=== PATIENT | female | born 1990 | race Caucasian/White ===

== ENCOUNTER 2016-08-19 09:21 | Emergency (ER) ==
[2016-08-19 09:26] VITALS: BP 141/79
[2016-08-19] MEDS ORDERED: BENADRYL IM ONE (10:08)
--- NOTE | 2016-08-19 10:12 | PROVIDER DOCUMENTATION ---
HPI-Rash/Wound/ReCheck - General Chief Complaint: Rash Stated Complaint: 37 WEEKS PREG/RASH Time Seen by Provider: 08/19/16 10:01 Source: patient Allergies/Adverse Reactions: Allergies Allergy/AdvReac Type Severity Reaction Status Date / Time chocolate flavor Allergy Intermediate rash and Verified 08/13/16 20:11 swelling Latex, Natural Rubber Allergy Intermediate RASH Verified 08/13/16 20:11 wild lam Allergy Unknown Verified 08/13/16 20:11 ants Allergy Intermediate SWELLING Uncoded 01/07/16 14:36 Home Medications: Home Medication List Medication Instructions Recorded Confirmed Last Taken Type Pnv with Ca,No.71/Iron/FA 1 each PO DAILY 12/05/14 08/16/16 08/13/16 History [ Vitamin Tablet] - History of Present Illness-Dermatology Nature of Presenting Problem: This pt, who is currently 37 weeks , presents today c complaints of an itchy rash on her arms and abdomen X 2 days. She denies any new exposures. No n/ v/d, fever, chills. No other issues or complaints. Location: reports: other (see hpi) Quality: reports: itchy Severity: reports: moderate Onset/Duration: reports: 2 days ago Timing: reports: still present Context/Associated Symptoms: reports: rash Similar Symptoms Previously?: No Recently seen or treated by another doctor?: No Review of Systems - Adult - REVIEW OF SYSTEMS - ADULT Constitutional: reports: no symptoms reported. denies: chills, fever Eyes: reports: no symptoms reported. denies: discharge, dry eyes Ears, Nose, Mouth & Throat: reports: no symptoms reported. denies: ear discharge, ear pain Cardiovascular: reports: no symptoms reported. denies: chest pain, edema Respiratory: reports: no symptoms reported. denies: chronic cough, cough Gastrointestinal: reports: no symptoms reported. denies: abdominal pain, hematemesis Genitourinary: reports: no symptoms reported. denies: dysuria, discharge Musculoskeletal: reports: no symptoms reported. denies: bone pain, back pain Integumentary: reports: itching, rash. denies: hives, hair loss Neurological: reports: no symptoms reported. denies: ataxia, dizziness/vertigo Psychiatric: reports: no symptoms reported. denies: anxiety, anti-depressant use Endocrine: reports: no symptoms reported Hematologic/Lymphatic: reports: no symptoms reported Allergic/Immunologic: reports: no symptoms reported All Other Systems: Reviewed and Negative Past History - Adult - PAST MEDICAL HISTORY-ADULT Review of Records: reports: Old Records Reviewed, Nursing Assessment Review, Medications Reviewed, Social history reviewed & non-contributory. Major Childhood Illnesses: reports: denies history Cardiovascular: reports: denies history Respiratory: reports: asthma Gastrointestinal: reports: denies history Obstetrical/Gynecological: reports: denies history Genitourinary: reports: denies history Musculoskeletal: reports: denies history Neurological: reports: denies history Endocrine/Immune: reports: denies history Other Conditions: reports: denies history - PRIOR SURGERIES/PROCEDURES Surgical/Procedure History: reports: none - PRIOR HOSPITALIZATIONS Prior Hospitalizations: reports: none - IMMUNIZATION STATUS Childhood Immunizations: See Nurse Assessment Flu Vaccine: See Nurse Assessment - FAMILY HISTORY Family History: reviewed, not pertinent Physical Exam-General - PHYSICAL EXAM-ADULT Initial Vital Signs Reviewed: Yes - CONSTITUTIONAL General Appearance: appears well, alert, no apparent distress - EYES Eyes: PERRL/EOMI, pink conjunctivae - HEAD, EARS, NOSE, MOUTH & THROAT HENMT: normocephalic/atraumatic, moist mucous membranes, normal ENT inspection - NECK Neck: non-tender, full range of motion, supple, normal inspection - RESPIRATORY Respiratory: chest non-tender, lungs clear, normal breath sounds, no pleuratic chest pain, no respiratory distress, no accessory muscle use - CARDIOVASCULAR Cardiovascular: normal peripheral pulses, regular rate, rhythm, no edema, no gallop, no JVD, no murmur - GASTROINTESTINAL (ABDOMEN) Abdominal Exam: normal bowel sounds, non tender, soft - MUSCULOSKELETAL Back Exam: normal inspection Extremity: normal range of motion, non-tender, normal gait - SKIN Integumentary: normal turgor, warm/dry, rash - NEUROLOGIC Neurologic: grossly normal, no motor/sensory deficits Progress - PLAN OF CARE/RESULTS Progress/Plan/Lab Results: Orders Category Date Time Status Heart Tones NOW Care 08/19/16 10:08 Active Diphenhydramine [Benadryl] Med 08/19/16 10:08 Discontinued 50 mg IM NOW ONE Vital Signs Temp Pulse Resp BP Pulse Ox 08/19/16 09:23 97.8 F 101 H 18 141/79 100 chocolate flavor Allergy (Intermediate, Verified 08/13/16 20:11) rash and swelling Latex, Natural Rubber Allergy (Intermediate, Verified 08/13/16 20:11) RASH migraines wild lam Allergy (Verified 08/13/16 20:11) Unknown ants Allergy (Intermediate, Uncoded 01/07/16 14:36) SWELLING Pnv with Ca,No.71/Iron/FA [ Vitamin Tablet] 1 each PO DAILY 12/05/14 Departure - Departure Time of Disposition Order: 10:11 DIAGNOSIS: PUPP (pruritic urticarial papules and plaques of ) Disposition: HOME 01 Certified Medical Emergency: Urgent Condition: Good Additional Instructions: Take benadryl for itching relief. Follow up with your [employer]. ED Follow Up Instructions: You have been treated by a care provider in the Emergency Department. These instructions are being provided to you so you can have an understanding of how to care for yourself upon discharge. Upon discharge from the Emergency Department, you are responsible for making arrangements for follow-up care by a physician of your choice. Take all prescribed medications as directed. Return to the Emergency Department immediately for any new or worsening symptoms. You may call the Physician Referral phone number at [phone] to obtain a list of Physicians who are taking new patients. Referrals: Rubén Lopes MD [Primary Care Provider] - Attestation - Physician/ [place] Attestation Patient care was provided by Advanced Practice Provider:: Yes Advanced Practice Provider:: Brayan Fulton Advanced Practice Provider documentation review:: The Mid-level provider documentation, treatment plan and medical decision making was reviewed by the physician who agrees with all treatment and medical decision making by the MLP.
== END 2016-08-19 10:24 | disposition home or self-care (01) ==
LOC: P.ED 09:21
DX: O26.86 Pruritic urticarial papules and plaques of pregnancy (PUPPP) (principal); Z3A.37 37 weeks gestation of pregnancy; R21 Rash and other nonspecific skin eruption
CPT/HCPCS: 96372; J1200

== ENCOUNTER 2016-09-01 08:26 | Inpatient (IN) ==
[2016-09-01] MEDS ORDERED: LR 2,000 ML ONE (08:43)
[2016-09-01 08:46] LABS: URINE SOURCE VOIDED
[2016-09-01] MEDS ORDERED: REGLAN PO ONE (08:48)
[2016-09-01] MEDS ORDERED: TYLENOL PO PRN (08:48)
[2016-09-01] MEDS ORDERED: PEPCID PO PRN (08:48)
[2016-09-01] MEDS ORDERED: STADOL IV PRN (08:48)
[2016-09-01] MEDS ORDERED: ZOFRAN IV PRN ×2 (08:48→10:50)
[2016-09-01] MEDS ORDERED: LR 500 ML IV ONE (08:48)
[2016-09-01] MEDS ORDERED: KEFZOL 1 GM/D5W 50 ML IV PRN (08:48)
[2016-09-01] MEDS ORDERED: PEPCID PO ONE (08:48)
[2016-09-01] MEDS ORDERED: PEPCID IV PRN (08:48)
[2016-09-01] MEDS ORDERED: PITOCIN 30 UNITS/LR 500 ML IV SCH (09:00)
[2016-09-01] MEDS ORDERED: LR 1,000 ML IV SCH (09:00)
[2016-09-01] MEDS ORDERED: SODIUM CHLORIDE 0.9% INJ SCH (09:00)
[2016-09-01] MEDS ORDERED: FENTANYL ONE (09:09)
[2016-09-01] MEDS ORDERED: VERSED ONE ×2 (09:09→10:27)
[2016-09-01] MEDS ORDERED: DURAMORPH ONE (09:09)
[2016-09-01 09:10] LABS: BILIRUBIN URINE NEGATIVE (NEGATIVE); BLOOD URINE 4+ (NEGATIVE); GLUCOSE URINE NEGATIVE (NEGATIVE); LEUKOCYTES URINE 2+ (NEGATIVE); NITRITE URINE NEGATIVE (NEGATIVE); PROTEIN URINE NEGATIVE (NEGATIVE); UROBILINOGEN URINE NORMAL
[2016-09-01] MEDS ORDERED: BICITRA ONE (09:11)
[2016-09-01 09:16] LABS: CLARITY CLEAR (CLEAR); COLOR YELLOW
[2016-09-01] MEDS ORDERED: PITOCIN IM PRN (10:27)
[2016-09-01] MEDS ORDERED: AMBIEN PO PRN (10:27)
[2016-09-01] MEDS ORDERED: DEMEROL IM PRN (10:27)
[2016-09-01] MEDS ORDERED: HYDROXYZINE PO PRN (10:27)
[2016-09-01] MEDS ORDERED: PITOCIN 20 UNITS/LR 1,000 ML IV ONE (10:27)
[2016-09-01] MEDS ORDERED: CYTOTEC PO PRN (10:27)
[2016-09-01] MEDS ORDERED: M-M-R II VACCINE SUBQ ONE (10:27)
[2016-09-01] MEDS ORDERED: DULCOLAX PR PRN (10:27)
[2016-09-01] MEDS ORDERED: NORCO-5 PO PRN ×2 (10:27→10:50)
[2016-09-01] MEDS ORDERED: HYDROXYZINE IM PRN (10:27)
[2016-09-01] MEDS ORDERED: DEMEROL PO PRN ×2 (10:27)
[2016-09-01] MEDS ORDERED: PHENERGAN IM PRN (10:27)
[2016-09-01] MEDS ORDERED: BOOSTRIX VACCINE IM ONE (10:27)
[2016-09-01] MEDS ORDERED: DIPRIVAN 1% ONE (10:27)
[2016-09-01] MEDS ORDERED: XYLOCAINE-MPF 2% ONE (10:28)
[2016-09-01] MEDS ORDERED: QUELICIN ONE (10:28)
[2016-09-01] MEDS ORDERED: ZOFRAN ODT PO PRN (10:50)
[2016-09-01] MEDS ORDERED: NARCAN INJ PRN (10:50)
[2016-09-01] MEDS ORDERED: NORCO-10 PO PRN (10:51)
[2016-09-01] MEDS: ZOFRAN IV PRN ×2 (11:41→11:50)
--- NOTE | 2016-09-01 13:39 | OPERATIVE NOTE ---
PROCEDURE DATE: 09/01/2016 SURGEON: Nacho Razo MD ANESTHESIA: Spinal by Dr. Cárdenas. OPERATION PERFORMED: Primary low transverse . PREOPERATIVE DIAGNOSES: 1. Term . 2. Labor. 3. Severe variable decelerations. POSTOPERATIVE DIAGNOSES: 1. Term . 2. Labor. 3. Severe variable decelerations. FINDINGS: At 9:33, a 7 pound 3 ounce male was delivered. The was meconium stained fluid. There was a nuchal cord x1. Apgars were 8 at 1 minute and 8 at 5 minutes. SUMMARY: Patient was taken back to the operating room, where spinal anesthetic was placed quickly by Dr. Cárdenas. She was then placed in supine position with left lateral tilt. The abdomen was prepped and draped in the usual fashion. A King catheter was in the urinary bladder. Once satisfactory conduction anesthesia was demonstrated, a Pfannenstiel incision was made. This incision was taken down to the fascia and the fascia was excised transversely. The underlying rectus muscles were bluntly and sharply dissected free. The rectus muscle was in midline. The peritoneum was entered. Lower uterine segment was identified and bladder flap was created. A low transverse incision was made across the lower uterine segment. This incision was extended laterally using digital pressure. Membranes were ruptured revealing meconium-stained fluid. The infant's vertex was delivered through this incision without difficulty. The nuchal cord was reduced. The shoulders and body delivered without complications. Oropharynx was bulb suctioned. The cord was clamped and cut, the was handed to the nurses further care and evaluation. Cord blood was obtained. Placenta was manually removed. Uterus was delivered onto the abdominal wall and explored. All membrane fragments removed. The myometrium was then reapproximated using a running #1 chromic interlocking suture, followed by several [id number] chromic sutures for complete hemostasis across the suture line. The uterus was placed back in the pelvic cavity. Uterine incision was irrigated with copious amounts of sterile water and again hemostasis was noted. Our first and second sponge, instrument, and needle count reported as correct as the peritoneum was closed using a running chromic suture. A third and final sponge, instrument and needle count reported as correct as the fascia was closed using running Vicryl sutures x2. The adipose tissue was reapproximated using a running Vicryl suture and the skin edges reapproximated using a 3-0 Monocryl suture. Anesthesia estimated the blood loss at 400 mL. There were no complications. The patient went to the recovery room in stable condition.
[2016-09-01] MEDS: TORADOL IV SCH ×2 (15:47→21:34)
[2016-09-01] MEDS: MYLICON PO SCH ×3 (15:52→20:53)
[2016-09-01] MEDS: PITOCIN 10 UNITS/LR 1,000 ML IV SCH (18:09)
[2016-09-01] MEDS: PERICOLACE PO SCH (20:53)
[2016-09-02] MEDS: BENADRYL IV PRN ×2 (01:13→04:41)
[2016-09-02] MEDS: PITOCIN 10 UNITS/LR 1,000 ML IV SCH (02:03)
[2016-09-02] MEDS ORDERED: TORADOL ONE (04:33)
[2016-09-02] MEDS ORDERED: TORADOL IV ONE (04:45)
[2016-09-02 06:11] LABS: HEMATOCRIT 37.2 % (37.0-47.0); MCH 30.5 PG (27-31); MCHC 32.3 g/dL (33-37); MCV 94.7 FL (81-99); MPV 9.4 FL (7.4-10.4); RBC 3.93 XMIL (4.2-5.4)
[2016-09-02] MEDS: PRECARE PO SCH (09:07)
[2016-09-02] MEDS: MYLICON PO SCH ×4 (09:07→22:17)
[2016-09-02] MEDS ORDERED: LR 1,000 ML IV SCH (10:27)
[2016-09-02] MEDS: NORCO-10 PO PRN ×2 (10:43→22:17)
[2016-09-02] MEDS: MOTRIN PO PRN ×2 (10:43→19:25)
[2016-09-02] MEDS: PERCOCET-5 PO PRN ×2 (14:28→18:02)
[2016-09-02] MEDS: MYLICON PO PRN (14:29)
[2016-09-02] MEDS: PERICOLACE PO SCH (22:18)
[2016-09-03] MEDS: NORCO-10 PO PRN ×3 (07:30→17:31)
[2016-09-03] MEDS: MOTRIN PO PRN ×2 (07:31→16:19)
[2016-09-03] MEDS: PRECARE PO SCH (08:54)
[2016-09-03] MEDS: MYLICON PO SCH ×3 (08:54→18:15)
[2016-09-03] MEDS: MYLICON PO PRN (14:20)
--- NOTE | 2016-09-04 07:09 | HISTORY AND PHYSICAL ---
PHYSICIAN: Nacho Razo MD. DIAGNOSIS: Recurrent deep variable decelerations. SUMMARY: Lisa Roberts is a 25-year-old, 2, para 1-0-0-1, who presented to labor and delivery with spontaneous rupture of membranes. When she was placed on the monitor, she was noted to have severe deep variable decelerations down into the 40s. Intrauterine resuscitative methods have failed to resolve this problem. She is therefore being prepared for immediate delivery. PAST MEDICAL HISTORY: Patient has had one previous vaginal delivery. She has no chronic medical or surgical illnesses. Her blood type is O positive. ALLERGIES: To latex. CURRENT MEDICATIONS: vitamins. PHYSICAL EXAMINATION: GENERAL: Shows a well-developed, well-nourished female. VITAL SIGNS: Stable. She is afebrile. CARDIOVASCULAR: Regular rate and rhythm without murmurs, rubs, or gallops. PULMONARY: Clear. BREASTS: No masses. ABDOMEN: Gravid. PELVIC: Cervix is 5 cm dilated. is in the vertex presentation. I cannot feel a prolapsing cord. EXTREMITIES: No clubbing, edema, or cyanosis. IMPRESSION: Severe recurrent deep variable discolorations that have failed to resolve with standard intrauterine resuscitative methods. PLAN: We will proceed with immediate delivery. Risks, benefits, possible complications, and obstetrical indications were discussed.
[2016-09-04] MEDS: MYLICON PO SCH ×2 (08:36→09:12)
[2016-09-04] MEDS: NORCO-10 PO PRN (08:36)
[2016-09-04 09:12] VITALS: BP 128/72
[2016-09-04] MEDS: PRECARE PO SCH (09:13)
--- NOTE | 2016-09-04 09:23 | DISCHARGE SUMMARY ---
ADMISSION DATE: 09/01/2016 DISCHARGE DATE: ADMITTING PHYSICIAN: Nacho Razo MD ADMITTING DIAGNOSES: 1. Term in labor. 2. Recurrent deep variable decelerations. PRINCIPAL DISCHARGE DIAGNOSES: 1. Term in labor. 2. Recurrent deep variable decelerations. PRINCIPAL PROCEDURE: Primary section. SUMMARY: Lisa Roberts is a 25-year-old, 2, para 1-0-0-1, who is at term gestation when she presented with spontaneous rupture of membranes. She was noted to have recurrent deep variable decelerations that failed to respond to significant uterine assisted methods. We therefore proceeded with immediate delivery. She delivered a 7 pound, 3 ounce male infant with Apgars of 8 at 1 minute and 8 at 5 minutes. There were no intraoperative complications. The infant was later transferred to [facility] due to the inability to control blood sugars. Postoperatively, Ms. Roberts has done well. She has remained afebrile and all of her vital signs were stable. Her hemoglobin and hematocrit at discharge was 12/37.2. On the day of discharge, cardiac and pulmonary examinations normal. Bowel and bladder function was normal. Incision was clean and dry. She has had scant vaginal bleeding. Ms. Roberts is being discharged today. I will see back and back in the office in 1 week. Routine discharge instructions, activity limitations, and precautions were discussed. She will continue vitamins and her antiemetics at 800 mg and Stephenson 10 #30.
== END 2016-09-04 08:45 | disposition home or self-care (01) | DRG 766 ==
LOC: P.OPLD 08:26 → P.LD 08:27 → P.OPLD 08:45 → P.LD 08:46
PROVIDERS: ADMIT Obstetrics & Gynecology; ATTEND Obstetrics & Gynecology
PROC: 10D00Z1 Extraction of Products of Conception, Low, Open Approach (ICD-10-PCS; principal; 2016-09-01 09:00)
DX: O76 Abnormality in fetal heart rate and rhythm complicating labor and delivery (principal); O77.0 Labor and delivery complicated by meconium in amniotic fluid; Z37.0 Single live birth; Z3A.39 39 weeks gestation of pregnancy; O69.1XX0 Labor and delivery complicated by cord around neck, with compression, not applicable or unspecified
CPT/HCPCS: 59025; 81003; 85027; 86592; 94761; 94799; J0330; J1200; J1885; J2250; J2274; J2405; J2590; J3010; J7120

== ENCOUNTER 2017-01-31 09:24 | Observation (INO) ==
[2017-01-31] MEDS ORDERED: LR 1,000 ML ONE ×2 (10:11→15:38)
[2017-01-31] MEDS ORDERED: PEPCID ONE (10:11)
[2017-01-31] MEDS ORDERED: KEFZOL 1 GM/D5W 1 GM/50 ML IVPB ONE (10:11)
[2017-01-31] MEDS ORDERED: XYLOCAINE 1% ONE (11:39)
[2017-01-31] MEDS ORDERED: SENSORCAINE 0.5%-EPI 1:200,000 ONE (11:39)
[2017-01-31] MEDS ORDERED: DIPRIVAN 1% ONE (11:50)
[2017-01-31] MEDS ORDERED: QUELICIN (DOSE) ONE (11:52)
[2017-01-31] MEDS ORDERED: XYLOCAINE-MPF 2% ONE (11:52)
[2017-01-31] MEDS ORDERED: OFIRMEV 1000 MG/ISOTONIC SOLN 1,000 MG/100 ML BOTTLE ONE (12:22)
[2017-01-31] MEDS ORDERED: ZOFRAN ONE (12:27)
[2017-01-31] MEDS ORDERED: DECADRON ONE (12:27)
[2017-01-31] MEDS ORDERED: FENTANYL ONE (12:35)
[2017-01-31] MEDS ORDERED: ZEMURON ONE (12:44)
[2017-01-31] MEDS ORDERED: ROBINUL ONE (13:51)
[2017-01-31] MEDS ORDERED: NEOSTIGMINE ONE (13:51)
[2017-01-31] MEDS ORDERED: TRANSDERM-SCOP ONE (14:49)
[2017-01-31] MEDS ORDERED: SYNTHROID PO ONE (15:10)
[2017-01-31] MEDS ORDERED: MORPHINE ONE (15:47)
[2017-01-31 16:24] LABS: AGAP 14; BUN 10 mg/dL (8-22); CALCIUM 8.2 mg/dL (8.8-10.2); CHLORIDE 106 mmol/L (98-107); COSMO 288; POTASSIUM 3.5 mmol/L (3.5-5.1); SODIUM 143 mmol/L (136-145); TCO2 23 mmol/L (25-35)
[2017-01-31] MEDS ORDERED: OSCAL 500 PO SCH (17:00)
[2017-01-31] MEDS: LR 1,000 ML IV SCH (17:19)
[2017-01-31] MEDS: OSCAL 500 PO SCH (17:19)
[2017-01-31 18:24] LABS: AGAP 15; BUN 10 mg/dL (8-22); CALCIUM 8.4 mg/dL (8.8-10.2); CHLORIDE 103 mmol/L (98-107); COSMO 282; MAGNESIUM 1.8 mg/dL (1.5-2.7); POTASSIUM 3.4 mmol/L (3.5-5.1); SODIUM 140 mmol/L (136-145); TCO2 22 mmol/L (25-35)
--- NOTE | 2017-01-31 18:27 | OPERATIVE NOTE ---
PROCEDURE DATE: 01/31/2017 PREOPERATIVE DIAGNOSES: Symptomatic multinodular goiter. POSTOPERATIVE DIAGNOSIS: Symptomatic multinodular goiter. PROCEDURE PERFORMED: Total thyroidectomy. COMPLICATIONS: None. ESTIMATED BLOOD LOSS: 50 mL. SPECIMENS: Total thyroid sent as left lobe and right lobe. COMPLICATIONS: None. ANESTHESIA: General. INDICATIONS: [age] old female whose has had a several year history of a large goiter that increased after recently. Thyroid function tests were normal and biopsies of the dominant nodules were benign. There is enlarged thyroid gland with several nodules that was very friable and with significant vascularity. OPERATIVE NOTE: Risks, benefits and alternatives discussed with the patient. She consented to the procedure. She was seen preoperatively and the surgery to be performed confirmed. She was taken to the operating room, placed in supine position and general anesthesia induced. Preincisional antibiotics were administered. Her neck was extended and she was placed in reverse Trendelenburg position. Her bilateral neck and chest were prepped with Betadine solution and draped in the usual fashion. After a time-out was performed we made an incision approximately 2 fingerbreadths above the sternal notch in a natural skin fold extending from sternocleidomastoid anteriorly to the contralateral sternocleidomastoid. Carried this dissection down through the platysma with electrocautery, down to the level of the strap muscles and divided the strap muscles along midline exposing the anterior aspect of the thyroid gland. We then created subplatysmal flaps prior to dividing the strap muscles superiorly and inferiorly. Placed separate retaining retractor. The thyroid gland was very adherent to the posterior aspect of the strap muscles and required electrocautery to dissect this but we were able to do this. There was a small skin opening made cephalad to our incision as the skin was folded back on itself. As we were dividing the strap muscles we made a skin opening here. Starting on the left side we mobilized the strap muscles off of the lateral aspect of the thyroid lobe out laterally to the carotid artery and then cephalad we continued this up to the superior pole. We circumferentially dissected out the superior pole using a right angle clamp, and divided this with a LigaSure device. This took a couple roberts given the size here. We then carried our dissection inferiorly, mobilized it out of the tracheoesophageal groove protecting the structure. We were able to identify both parathyroid glands. There were well perfused and we dissected these posteriorly. We saw the area where the nerve was located and left some thyroid gland mostly capsule adjacent to this to prevent injury here and devascularization. We divided the inferior pole vessels after circumferentially dissecting them with the LigaSure device. The middle thyroid vein was also divided. It was quite diminutive. Divided the thyroid at the isthmus and then took the remaining gland off the trachea using electrocautery and passed this off as specimen. We irrigated the wound, obtained hemostasis. Turned our attention to the right. Similarly we mobilized strap muscles off of the thyroid gland laterally to the carotid and continued this superiorly to the upper pole and circumferentially dissected this and divided with the LigaSure device. The right side was much larger but was able to easily be mobilized out of the tracheoesophageal groove again protecting the nerve along its course. There was a more prominent middle thyroidal vein here that we divided with the LigaSure device and then subsequently ligated with a silk suture and then took the lower pole vessels with a LigaSure device. Leaving a small amount of thyroid anterior to the nerve we also were able to identify 2 parathyroid glands on the right. One of these was somewhat dusky but the others were well perfused and felt that it would be adequate and we left it in situ. We mobilized the gland and mobilized it off the trachea dividing the tracheal attachment with electrocautery. Irrigated both sides. Again there was significant oozing here that was controlled with bovi and bipolar. We did Valsalva and confirmed hemostasis both bilaterally. Placed a Surgicel in the wound bed. We placed a 7- Chinese Alan drain on both sides and secured this with a silk suture. The strap muscles were reapproximated in midline with interrupted 3-0 Vicryl sutures. Platysma was reapproximated with interrupted 3-0 Vicryl sutures. The transverse fashion we cleaned up the edges from the opening made in the skin and a 3-0 Vicryl was placed in the deep dermis here and interrupted 4-0 Monocryl closed this along the midline. Then closed the skin with a running 4-0 subcuticular suture in a subcuticular fashion, a knotless subcuticular fashion. Dermabond was applied. She tolerated procedure well. Counts correct x2. No identified complications. We extubate her in the operating room and there was no stridor noted and she was able to generate a strong cough. Transferred to PACU in good condition. I spoke with the family. Will observe her tonight for pain control and to monitor her calcium. cc: Steven Moffett MD MTDD
[2017-01-31] MEDS: NORCO-7.5 PO PRN (21:31)
[2017-01-31] MEDS: PERIDEX MT SCH (21:32)
[2017-02-01] MEDS: NORCO-7.5 PO PRN ×2 (01:04→04:25)
[2017-02-01] MEDS: OSCAL 500 PO SCH ×2 (01:09→08:15)
[2017-02-01] MEDS: LR 1,000 ML IV SCH (03:30)
[2017-02-01 06:33] LABS: MAGNESIUM 1.9 mg/dL (1.5-2.7)
[2017-02-01 07:29] VITALS: BP 103/62
[2017-02-01] MEDS: PERIDEX MT SCH (08:15)
[2017-02-01 08:19] LABS: AGAP 15; BUN 8 mg/dL (8-22); CHLORIDE 100 mmol/L (98-107); COSMO 276; POTASSIUM 4.3 mmol/L (3.5-5.1); SODIUM 139 mmol/L (136-145); TCO2 24 mmol/L (25-35)
[2017-02-01] MEDS ORDERED: OSCAL 500 PO SCH (09:00)
--- NOTE | 2017-02-01 18:45 | DISCHARGE SUMMARY ---
ADMISSION DATE: 01/31/2017 DISCHARGE DATE: 02/01/2017 Admission Diagnosis: Multinodular Goiter Discharge Diagnosis: Same Procedure: Total Thyroidectomy Farm Reporter: none HISTORY OF PRESENT ILLNESS: This is a 26-year-old female who was seen in my office for a symptomatic large goiter, multinodular, biopsies benign. She was admitted to the hospital on 01/31 for a total thyroidectomy. For details please see dictated operative note. Postoperatively she did well. She had no symptoms of recurrent laryngeal nerve injury or hypocalcemia. She was started on supplemental Tums. Her calcium levels are climbing up to 9 on postoperative day #1. Her drain was removed. Her diet was advanced. She is tolerating this well. Wound looked appropriate postoperatively with no evidence of hematoma. She was felt safe for discharge home at this time. FOLLOWUP: Follow-up appointment with me in the next 1-2 weeks. DISCHARGE INSTRUCTIONS: 1. She will call with any fevers, swelling or redness of her wound. 2. We also discussed in detail the signs and symptoms of hypocalcemia. If she develops tingling, she is to take an extra 1000 mg of calcium carbonate, wait 10 minutes and take another 1000 mg, and then call our office if it fails to resolve. 3. In the meantime she will continue t.i.d. with calcium carbonate 125 mcg Synthroid q. morning, and I gave her prescription for [place], Colace, and Zofran as needed. DISPOSITION: Home to self-care. DISCHARGE CONDITION: Good. cc: Steven Moffett MD MTDD
== END 2017-02-01 10:05 | disposition home or self-care (01) ==
LOC: 4N 09:24 → OR 09:24
PROVIDERS: ADMIT Surgery; ATTEND Surgery